=== PATIENT | female | born 1945 | race Caucasian/White ===

== ENCOUNTER 2016-09-10 19:48 | Emergency (ER) | payer MEDICARE, BC | END 2016-09-10 22:19 | disposition home or self-care (01) | LOC: D.ER 19:48 | DX: S39.012A Strain of muscle, fascia and tendon of lower back, initial encounter (principal); X58.XXXA Exposure to other specified factors, initial encounter; Y93.89 Activity, other specified; Y92.512 Supermarket, store or market as the place of occurrence of the external cause ==

== ENCOUNTER 2016-10-06 20:00 | Outpatient (CLI) | payer MEDICARE, BC | END 2016-10-06 23:59 | disposition home or self-care (01) | LOC: D.SLEEP 20:00 | DX: R06.83 Snoring (principal) ==

== ENCOUNTER → 2016-12-02 19:07 | Outpatient (CLI) | payer MEDICARE, BC | END | disposition home or self-care (01) | LOC: D.SLEEP 19:07 | DX: G47.33 Obstructive sleep apnea (adult) (pediatric) (principal) ==

== ENCOUNTER → 2016-12-12 19:25 | Outpatient (CLI) | payer MEDICARE, BC | END | disposition home or self-care (01) | LOC: D.SLEEP 19:25 | DX: G47.33 Obstructive sleep apnea (adult) (pediatric) (principal) ==

== ENCOUNTER 2017-05-23 15:35 | Observation (INO) | payer MEDICARE, BC ==
[2017-05-23] MEDS ORDERED: LISINOPRIL-HCTZ1 TA2 PO (20:58)
[2017-05-23] MEDS ORDERED: ATIVAN1 MG PO (20:58)
[2017-05-23] MEDS ORDERED: VITAMIN D31000 UNI2 PO (20:58)
[2017-05-23] MEDS ORDERED: ZOLOFT100 MG PO (20:59)
[2017-05-24 04:10] VITALS: BMI 30.6
[2017-05-24] MEDS ORDERED: LEVAQUIN500 MG PO (16:00)
[2017-05-24] MEDS ORDERED: ASPIRIN325 MG PO (16:00)
[2017-05-24] MEDS ORDERED: FLORAJEN3 CAPS460 MG PO (16:00)
== END 2017-05-24 15:40 | disposition other institution (70) ==
LOC: D.ER 15:35 → OBSVTIME 19:57 → D.EDHOLD 19:57 → D.M2 20:45
DX: N39.0 Urinary tract infection, site not specified (principal); F17.203 Nicotine dependence unspecified, with withdrawal; J98.11 Atelectasis; R42 Dizziness and giddiness; I10 Essential (primary) hypertension; R91.8 Other nonspecific abnormal finding of lung field

== ENCOUNTER 2017-05-23 15:35 | Inpatient (IN) | payer MEDICARE, BC ==
[~2017-05-23] VITALS: Ht 170.2 cm; Wt 91.3 kg
[2017-05-23 17:50] LABS: BASOPHILS 0.4 % (0-2); EOSINOPHILS 0.7 % (0-7); HEMATOCRIT 41.6 % (36.0-48.0); HEMOGLOBIN 13.6 g/dL (12-16); IMMATURE GRANULOCYTES 0.7 % (0-5); MCH 30.1 pg (26.0-34.0); MCHC 32.7 g/dL (31.0-37.0); MEAN PLATELET VOLUME 8.9 fL (7.4-10.4); NEUTROPHILS 85.2 % (40-80); PLATELET COUNT 281 10x3/uL (130-400); RBC 4.52 10x6/uL (4.00-5.40); RDW 13.3 % (11.5-14.5); WBC 15.3 10x3/uL (4.8-10.8)
[2017-05-23 18:14] LABS: APPEARANCE CLOUDY (CLEAR); BILIRUBIN NEGATIVE (NEGATIVE); COLOR DK YELLOW (YELLOW); GLUCOSE NEGATIVE (NEGATIVE); KETONE NEGATIVE (NEGATIVE); NITRITE NEGATIVE (NEGATIVE); PROTEIN 1+ mg/dL (NEGATIVE); UROBILINOGEN NORMAL (NORMAL)
[2017-05-23 18:18] LABS: BACTERIA MANY /hpf (NONE SEEN); WHITE CELLS - URINE 0-5 /hpf (0-5)
[2017-05-23 18:18] LABS: ALKALINE PHOSPHATASE 72 U/L (46-116); ALT (SGPT) 18 U/L (10-68)
[2017-05-23 18:19] LABS: GRANULAR CAST OCC /lpf (NONE SEEN)
[2017-05-23 18:45] LABS: CARBON DIOXIDE 24.1 mmol/L (21.0-32.0); CHLORIDE - SERUM 102 mmol/L (98-107); POTASSIUM - SERUM 3.8 mmol/L (3.5-5.1); SODIUM 135 mmol/L (136-145)
[2017-05-23 19:03] LABS: ALBUMIN 3.1 g/dL (3.4-5.0); CALCIUM 8.8 mg/dL (8.5-10.1); CREATININE - SERUM 1.4 mg/dL (0.6-1.3); PROTEIN - SERUM 6.9 g/dL (6.4-8.2); UREA NITROGEN 20 mg/dL (7-18); eGFR NON AFRICAN AMERICAN 39 mL/min (90-120)
[2017-05-23 19:04] LABS: CALC OSMOLALITY 267 mosm/kg (275-300); TROPONIN-I < 0.017 ng/mL (0.000-0.060)
[2017-05-23 19:09] LABS: GLUCOSE 109 mg/dL (74-106)
[2017-05-23] MEDS ORDERED: ATIVAN1 MG PO (20:58)
[2017-05-23] MEDS ORDERED: LISINOPRIL-HCTZ1 TA2 PO (20:58)
[2017-05-23] MEDS ORDERED: VITAMIN D31000 UNI2 PO (20:58)
[2017-05-23] MEDS ORDERED: ZOLOFT100 MG PO (20:59)
[2017-05-23 23:35] LABS: CKMB 0.4 U/L (0.0-3.6); CREATINE KINASE 25 UL (21-215)
[2017-05-23 23:36] LABS: TROPONIN-I < 0.017 ng/mL (0.000-0.060)
[2017-05-24] VITALS: BP 123/48
[2017-05-24 04:00] VITALS: BP 126/59
[2017-05-24 04:10] VITALS: Ht 170.2 cm; Wt 91.3 kg
[2017-05-24 04:35] LABS: BASOPHILS 0.8 % (0-2); EOSINOPHILS 3.6 % (0-7); HEMATOCRIT 37.6 % (36.0-48.0); HEMOGLOBIN 12.1 g/dL (12-16); IMMATURE GRANULOCYTES 0.3 % (0-5); LYMPHOCYTES 25.3 % (15-50); MCH 29.6 pg (26.0-34.0); MCHC 32.2 g/dL (31.0-37.0); MCV 91.9 fL (80.0-100.0); MEAN PLATELET VOLUME 9.4 fL (7.4-10.4); MONOCYTES 9.8 % (2-11); NEUTROPHILS 60.2 % (40-80); PLATELET COUNT 299 10x3/uL (130-400); RBC 4.09 10x6/uL (4.00-5.40); RDW 13.3 % (11.5-14.5); WBC 11.8 10x3/uL (4.8-10.8)
[2017-05-24 04:54] LABS: CALCIUM 7.8 mg/dL (8.5-10.1); CARBON DIOXIDE 25.9 mmol/L (21.0-32.0); CREATININE - SERUM 1.2 mg/dL (0.6-1.3); POTASSIUM - SERUM 3.9 mmol/L (3.5-5.1)
[2017-05-24 05:24] LABS: CKMB 0.3 U/L (0.0-3.6); CREATINE KINASE 24 UL (21-215); TROPONIN-I < 0.017 ng/mL (0.000-0.060)
[2017-05-24 08:26] VITALS: BP 146/70
[2017-05-24 11:04] LABS: CKMB 0.4 U/L (0.0-3.6); CREATINE KINASE 20 UL (21-215); TROPONIN-I < 0.017 ng/mL (0.000-0.060)
[2017-05-24 13:10] VITALS: BP 135/64; BP 144/77
[2017-05-24 13:11] VITALS: BP 135/71
[2017-05-24] MEDS ORDERED: LEVAQUIN500 MG PO (16:00)
[2017-05-24] MEDS ORDERED: FLORAJEN3 CAPS460 MG PO (16:00)
[2017-05-24] MEDS ORDERED: ASPIRIN325 MG PO (16:00)
[2017-05-24 16:53] VITALS: BP 136/81
== END 2017-05-24 18:19 | disposition home or self-care (01) | DRG 690 ==
LOC: D.ER 15:35 → D.EDHOLD 20:10 → D.M2 20:10 → OBSVTIME 20:11 → D.M2 20:38
PROVIDERS: Emergency Medicine; Family Medicine
DX: N39.0 Urinary tract infection, site not specified (principal); F17.203 Nicotine dependence unspecified, with withdrawal; J98.11 Atelectasis; R42 Dizziness and giddiness; I10 Essential (primary) hypertension; R91.8 Other nonspecific abnormal finding of lung field